=== PATIENT | male | born 1955 | race Caucasian/White ===

== ENCOUNTER 2022-02-16 21:41 | Emergency (ER) | payer OTHER, SELFPAY ==
[2022-02-16 21:45] VITALS: BP 134/84; PULSE 70; RESP 14; TEMP 36.2; O2SAT 97; BMI 24.3
--- NOTE | 2022-02-16 22:50 | EDS_ITS ---
HPI History of Present Illness Chief Complaint: Back Informant: patient Onset/Context/Timing Onset: Weeks (1-2) Narrative Narrative: Little over a week of gradual onset and gradually worsening pain in his right low back going down his right leg, the back of it to the ankle, wrapping around the anterior lateral lower leg. Starting to feel a little weak but he is able to walk. 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 He was seen at outside hospital for the same thing several days ago and started on cyclobenzaprine and prednisone. He states pain is persistent and not necessarily getting any better but he has no new symptoms. No bowel or bladder dysfunction. No injuries or heavy lifting associated with the onset of this. Never had this before. [facility] Medical History (Updated 02/17/22 @ 00:[address] Reji Salazar MD) History of left above knee amputation Medical History no medical history no medical history Home Medications acetaminophen-codeine [Tylenol-Codeine #4] 1 tab PO Q6H PRN 02/16/22 [History Last Taken Unknown] cyclobenzaprine [Flexeril] 10 mg PO TID PRN 02/16/22 [History Last Taken Unknown] prednisone 20 mg PO BID 02/16/22 [History Last Taken Unknown] gabapentin 300 mg PO TID #89 cap 02/17/22 [Rx Last Taken Unknown] hydrocodone-acetaminophen 1 tab PO Q4H PRN PRN 2 Days #10 tablet 02/17/22 [Rx Last Taken Unknown] Allergy/AdvReac Type Severity Reaction Status Date / Time oxycodone AdvReac Itching Verified 02/16/22 21:44 Social History Smoking Status: Current every day smoker tobacco type: pipe ROS ROS ED Constitutional Constitutional ED: Denies chills or fever(s) Gastrointestinal Gastrointestinal: Denies abdominal pain, constipation, fecal incontinence, nausea or vomiting Genitourinary Genitourinary ED: Reports other Details: no urinary retention ; Denies abdominal discomfort or urinary incontinence Musculoskeletal Musculoskeletal: Reports as per HPI and back pain; Denies neck pain Integumentary Denies rash or wounds Neurologic Neurologic: Reports paresthesias and weakness; Denies headache(s) EXAM Physical Exam Const Vital Signs: 02/16/22 21:45 Temperature 97.1 F L Temperature Source Temporal Pulse Rate 70 Respiratory Rate 14 Blood Pressure 134/84 H Blood Pressure Mean 100 Pulse Ox 97 Oxygen Delivery Method Room Air Positive well nourished and well developed General Appearance ED: well developed and NAD HEENT Negative for trauma or tenderness Eyes PERRL and EOMs intact bilaterally Neck full ROM and supple GI normal to inspection, nondistended, normoactive bowel sounds, soft to palpation and non-tender Back/Spine normal to inspection Lumbar Spine / Lower Back: ROM limited, paraspinal muscle tenderness right (Right sciatic notch and SI joint) and straight leg raise positive right at 30 degrees; Negative for lumbar spinal tenderness Extremity normal to inspection, full ROM and no pedal edema Neuro oriented x3 and no sensory deficits noted Sensorium / Orientation: alert Motor Exam: strength 5/5 throughout and clonus absent Deep Tendon Reflexes: Rt Patellar (L4): 2+ and Rt Ankle (S1): 2+ Deep Tendon Reflexes Back: Rt Patellar (L4): 2+ and Rt Ankle (S1): 2+ Plantar Reflex: Downgoing: right Psych mental status grossly normal and thought process normal Skin no rashes or lesions noted and no wounds MDM MDM MDM Narrative Medical decision making narrative: Three-view lumbar spine x-rays were obtained, on my interpretation they show degenerative changes but no acute abnormality in the bones. Patient was given gabapentin and morphine and he did feel better. I agree this is probably sciatica. He does not have anything emergently surgical here. I referred him to spine, gave him information for both of our production support specialist here in [place], and I think it is reasonable to continue the prednisone as prescribed as well as the Flexeril as needed, and I will prescribe him a short course of hydrocodone in addition to gabapentin. Radiography Diagnostic Testing: Clinical Impression(s) from Imaging Studies Lumbar Spine X-Ray 02/16/22 23:20 IMPRESSION: Moderate-marked multilevel degenerative spine changes. Additional imaging such as MRI or CT could be considered if it is thought to be indicated. Electronically Signed: Marcia Oliva MD at 0:01 EDT , Discharge Plan Triage Chief Complaint: Back ED Provider: Reji Salazar Dx/Rx/DC Orders Clinical Impression: Acute right-sided back pain with sciatica Instructions: ED Sciatica Prescriptions: New hydrocodone-acetaminophen [hydrocodone-acetaminophen] 1 TABLET tablet 1 tab PO Q4H PRN PRN (Reason: Pain) 2 Days Qty: 10 RF: 0 gabapentin 300 mg capsule 300 mg PO TID Qty: 89 RF: 0 No Action cyclobenzaprine [Flexeril] 10 mg Tablet 10 mg PO TID PRN (Reason: Pain) RF: 0 prednisone 20 mg Tablet 20 mg PO BID RF: 0 acetaminophen-codeine [Tylenol-Codeine #4] 300-60 mg Tablet 1 tab PO Q6H PRN (Reason: Pain) RF: 0 Primary Care Provider: Irasema Morrison Referrals: Sohail Colbert DO [STAFF PHYSICIAN] - As soon as possible Irasema Morrison DO [Primary Care Provider] - Andrade Baker DO [STAFF PHYSICIAN] - As soon as possible Activity Restrictions/Additional Instructions: Choose one of the spine specialists above for follow-up. Disposition Disposition: Home, Self Care
[2022-02-16] MEDS: Morphine 4 MG/ML Syringe IM (23:00)
[2022-02-16] MEDS: Gabapentin 300 MG Capsule PO (23:11)
--- NOTE | 2022-02-16 23:20 | RAD_ITS ---
EXAM: XR LUMBOSACRAL SPINE, 2 OR 3 VIEWS CLINICAL INDICATION: pain TECHNIQUE: Frontal and lateral views of the lumbar spine and sacrum. This report was created using [employer] report generation technology. COMPARISON: None. FINDINGS: VERTEBRAE: Mild straightening of the usual lordotic curvature. Facet joint hypertrophic changes of the midlower lumbar facet joints. Intact SI joints. Surgical clips projecting over the right iliac bone. DISC SPACES: Marked disc space narrowing at L4-5 with anterior spondylosis. Moderate disc space narrowing at other levels including moderate-marked narrowing at L5-S1 with predominantly anterior spondylosis at multiple levels. SOFT TISSUES: Cholecystectomy clips. VASCULATURE: Peripheral calcification of the aorta without terra aneurysm. GASTROINTESTINAL TRACT: Moderate stool in the right colon. Included bowel gas pattern is non-obstructive. OTHER FINDINGS: 2 views. RAD/Lumbar Spine 2 or 3 Views IMPRESSION: Moderate-marked multilevel degenerative spine changes. Additional imaging such as MRI or CT could be considered if it is thought to be indicated. Electronically Signed: Marica Oliva MD at 0:01 EDT ,
[2022-02-17 00:46] VITALS: PULSE 80; RESP 16; O2SAT 97
== END 2022-02-17 00:47 | disposition home or self-care (01) ==
PROVIDERS: Emergency Provider Emergency Medicine; PCP Family Medicine; Visit Provider Emergency Medicine
DX: M54.41 Lumbago with sciatica, right side (principal); F17.200 Nicotine dependence, unspecified, uncomplicated
CPT/HCPCS: 72100; 96372; 99283

== ENCOUNTER 2022-03-02 05:02 | Emergency (ER) | payer OTHER, SELFPAY ==
[2022-03-02 05:03] VITALS: BP 122/92; PULSE 90; RESP 15; TEMP 36.6; O2SAT 94; BMI 24.3
--- NOTE | 2022-03-02 05:35 | ED.VIS.BACK ---
HPI History of Present Illness Chief Complaint: Lower Extremity Injury Informant: patient and spouse/S.O. Onset/Context/Timing Onset: Weeks (several) Context: Gradual Onset Timing: Continuous Quality: Aching Location: Lumbar, Buttock and Right Leg Current Severity: Severe Maximum Severity: Severe Worsened by: improves with Nothing Relieved by: Nothing Associated Symptoms Associated Symptoms: Tingling and Radiation to Right Leg; Negative for Abdominal Pain, Urinary Retention, Urinary Incontinence, Constipation and Fecal Incontinence Narrative Narrative: Patient was seen here about a week ago for same symptoms, he did get some relief temporarily, but the symptoms have gradually worsened he took his last hydrocodone tonight, pain is still severe. Hydrocodone was working well before, at least to help ease the pain temporarily. I put him on gabapentin, he states it does not seem to be doing a lot, so he is only taking it at night because it makes him sleepy. He denies any new symptoms, just worsening of the ones that were there before. It is Friday morning he has an appointment Friday with spine. He denies any bowel or bladder dysfunction or saddle anesthesia but has developed some right groin pain. It does not hurt worse to bear weight on. [facility] Medical History History of left above knee amputation Home Medications gabapentin 300 mg PO TID #89 cap 02/17/22 [Rx Last Taken Unknown] hydrocodone-acetaminophen 1 tab PO Q4H PRN 4 Days #20 tab 03/02/22 [Rx Last Taken Unknown] Allergy/AdvReac Type Severity Reaction Status Date / Time oxycodone AdvReac Itching Verified 03/02/22 05:07 Social History Smoking Status: Current every day smoker tobacco type: pipe ROS ROS ED Constitutional Constitutional ED: Denies chills or fever(s) Gastrointestinal Gastrointestinal: Denies abdominal pain, constipation, fecal incontinence, nausea or vomiting Genitourinary Genitourinary ED: Reports other Details: no urinary retention ; Denies abdominal discomfort or urinary incontinence Musculoskeletal Musculoskeletal: Reports as per HPI and back pain; Denies neck pain Integumentary Denies rash or wounds Neurologic Neurologic: Reports paresthesias RLE (hernandez); Denies headache(s) or weakness EXAM Physical Exam Const Vital Signs: 03/02/22 05:03 Temperature 97.9 F Temperature Source Oral Pulse Rate 90 Respiratory Rate 15 Blood Pressure 122/92 H Blood Pressure Mean 102 Pulse Ox 94 Oxygen Delivery Method Room Air Positive well nourished and well developed General Appearance ED: well developed and NAD HEENT Negative for trauma or tenderness Eyes PERRL and EOMs intact bilaterally Neck full ROM and supple GI normal to inspection, nondistended, normoactive bowel sounds, soft to palpation and non-tender Back/Spine no CVA tenderness and normal to inspection Lumbar Spine / Lower Back: pain with ROM, paraspinal muscle tenderness right (at R SI joint) and straight leg raise positive right at 60 degrees; Negative for lumbar spinal tenderness Extremity normal to inspection, full ROM and no pedal edema Extremity Narrative: No groin/hip joint pain with passive internal/external rotation of the right hip Neuro oriented x3 and no sensory deficits noted Sensorium / Orientation: alert Motor Exam: strength 5/5 throughout and clonus absent Deep Tendon Reflexes: Rt Patellar (L4): 2+, Lt Patellar (L4): 2+, Rt Ankle (S1): 2+ and Lt Ankle (S1): 2+ Deep Tendon Reflexes Back: Rt Patellar (L4): 2+, Lt Patellar (L4): 2+, Rt Ankle (S1): 2+ and Lt Ankle (S1): 2+ Plantar Reflex: Downgoing: bilateral Psych mental status grossly normal and thought process normal Skin no rashes or lesions noted and no wounds MDM MDM MDM Narrative Medical decision making narrative: X-rays were obtained at his last visit which showed mild to marked degenerative changes in the spine. He is having symptoms of an L4 right radiculopathy. He is also having pain and tenderness of the SI joint. At this time I would continue the gabapentin until he sees spine and is told otherwise, he states he had a shot of Toradol which worked well so I am going to give him that and analgesics as well as another prescription for hydrocodone. He already had steroids and I do not think they really helped, so were not going to repeat that at this time. Discharge Plan Triage Chief Complaint: Lower Extremity Injury ED Provider: Reji Salazar Dx/Rx/DC Orders Clinical Impression: Acute right-sided low back pain with sciatica Instructions: ED Sciatica Prescriptions: Continued gabapentin 300 mg capsule 300 mg PO TID Qty: 89 RF: 0 Changed hydrocodone-acetaminophen 1 TABLET tablet 1 tab PO Q4H PRN (Reason: Pain) 4 Days Qty: 20 RF: 0 Primary Care Provider: Irasema Morrison Referrals: Surgeon, Spine [Other] - Keep Sam appointment Irasema Morrison DO [Primary Care Provider] - Disposition Disposition: Home, Self Care
[2022-03-02] MEDS: Ketorolac 30 MG/ML Syringe IV (05:42)
[2022-03-02] MEDS: Morphine 4 MG/ML Syringe IV (05:45)
[2022-03-02 06:09] VITALS: BP 122/90; PULSE 90; RESP 15; O2SAT 94
== END 2022-03-02 06:10 | disposition home or self-care (01) ==
PROVIDERS: Emergency Provider Emergency Medicine; PCP Family Medicine; Visit Provider Emergency Medicine
DX: M54.40 Lumbago with sciatica, unspecified side (principal); F17.290 Nicotine dependence, other tobacco product, uncomplicated
CPT/HCPCS: 96374; 96375; 99283; A4216

== ENCOUNTER → 2022-03-06 | Outpatient (CLI) | payer MEDICARE, OTHER, SELFPAY ==
--- NOTE | 2022-03-06 16:41 | MRI_ITS ---
STUDY: MRI LUMBAR SPINE WITHOUT CONTRAST REASON FOR EXAM: Male, 66 years old. Pain, radiculopathy right leg TECHNIQUE: Standardized fat and water weighted pulse sequences were obtained in the sagittal and axial planes. COMPARISON: None FINDINGS: T12-L1: Normal endplates. Normal disc height, hydration and morphology. Normal bilateral facet joints. Normal central canal and bilateral lateral recesses. Normal bilateral intervertebral neural foramina. Normal lumbar lordosis. There is severe levo scoliosis. Normal conus medullaris that terminates at T12-L1 L1-2: Normal endplates. Normal disc height, desiccation and minimal annular bulge.. Normal bilateral facet joints. Normal central canal and bilateral lateral recesses. Normal bilateral intervertebral neural foramina. L2-3: Schmorl''s node deformity of the superior endplate of L3. Normal disc height, desiccation and minor annular bulge.. Bilateral facet arthropathy.. Normal central canal and bilateral lateral recesses. Moderate bilateral neuroforaminal encroachment L3-4: Normal endplates. Normal disc height, desiccation and minor annular bulge with small right foraminal disc protrusion... Facet arthropathy and thickening of ligamenta flava more severe on the right.. Normal central canal. Moderate right lateral recess stenosis and more severe narrowing of the right nerve root foramen L4-5: Narrowed disc space with degenerative endplate changes. Desiccation of disc and minimal annular bulge with large right posterolateral/foraminal disc extrusion with superior migration of disc fragment. Mild facet arthropathy. Normal central canal. Moderate to severe right lateral recess and supra articular stenosis. Moderate left neuroforaminal stenosis and moderate to severe narrowing on the right L5-S1: Normal endplates. Normal disc height, desiccation and minimal annular bulge.. Bilateral facet arthropathy more pronounced on the left.. Normal central canal and bilateral lateral recesses. Mild right neuroforaminal stenosis and moderate narrowing on the left.. Normal visualized sacral ala. Normal visualized paraspinous soft tissue structures. MRI/Spine Lumbar (Routine) IMPRESSION: Severe levoscoliosis and degenerative changes. Multilevel small stenosis secondary to disc disease and bony hypertrophy most severe on the right at L3-4 and L4-5. Findings as above Electronically Signed: Sohail Arambula MD at 19:50 EDT Reading Location ID and State: [facility] / [place] , Service support ,
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
== END | disposition home or self-care (01) ==
LOC: MRI 16:41
PROVIDERS: PCP Family Medicine
DX: M54.16 Radiculopathy, lumbar region (principal)
CPT/HCPCS: 70030; 72148

== ENCOUNTER 2022-03-27 10:19 | Observation (INO) | payer OTHER, SELFPAY ==
--- NOTE | 2022-03-22 08:54 | EKG12_ITS ---
Test Reason : PRE-OP Blood Pressure : / mmHG Vent. Rate : 090 BPM Atrial Rate : 090 BPM P-R Int : 160 ms QRS Dur : 086 ms QT Int : 368 ms P-R-T Axes : 076 027 048 degrees QTc Int : 450 ms Normal sinus rhythm Nonspecific ST abnormality Abnormal ECG Confirmed by MEAGAN MOULTON, KANDIS ([id number]), scientific editor DOMENICA MCGEE ([id number]) on 03/22/2022 11:25:05 AM Referred By: Andrade Baker Confirmed By:KANDIS RHODES MD
[2022-03-22 09:58] LABS: Absolute Lymphocyte Count 1.18 X10^3/uL (0.83-4.51); Absolute Neutrophil Count 3.7 X10^3/uL (2.0-7.7); Basophil# 0.08 X10^3/uL; Basophil% 1.4 % (0-1); Eosinophil# 0.15 X10^3/uL; Eosinophils% 2.7 % (0-5); Hematocrit 45.3 % (40-54); Hemoglobin 15.6 g/dL (13.0-16.5); Lymphocyte # 1.18 X10^3/ul (0.83-4.51); Mean Corp Hgb Conc 34.4 g/dL (32-36); Mean Corpuscular Hgb 31.8 pg (27.0-32.0); Mean Corpuscular Volume 92.4 fL (80-94); Mean Platelet Vol. 10.6 fl (6.2-12.0); Monocyte# 0.47 X10^3/uL; Monocyte% 8.3 % (0-10); NRBC Flagged by Analyzer 0 % (0-5); Neutrophil # 3.73 X10^3/uL (2.7-7.7); Neutrophil % 66.2 % (47-70); Platelet Count 313 K/mm3 (150-450); RBC Distribution Width SD 41.5 fl (35.1-43.9); White Blood Count 5.6 K/mm3 (4.4-11.0)
[2022-03-22 10:11] LABS: Prothrombin Time (Protime)PT. 12.4 SECONDS (11.7-14.9)
[2022-03-22 10:12] LABS: Partial Thromboplast Time 28.7 Seconds (24.1-36.2)
[2022-03-22 10:17] LABS: Anion Gap 6 (5-15); BUN 8 mg/dL (7-18); BUN/Creat Ratio 9.1 RATIO (10-20); Calcium,Total 9.1 mg/dL (8.5-10.1); Chloride 108 mmol/L (98-107); Creatinine, Serum 0.88 mg/dL (0.70-1.30); EST Glomerular Filtration Rate 93 mL/min (>60); Est Glom Filt Rate - Afr Amer 112 mL/min (>60); Glucose 87 mg/dL (74-106); Potassium 4.2 mmol/L (3.5-5.1); Sodium Level 139 mmol/L (136-145)
[2022-03-22 10:25] LABS: AST(SGOT) 23 U/L (15-37); Alanine Aminotransfer ALT/SGPT 74 U/L (16-61); Albumin, Serum 3.9 g/dL (3.2-5.0); Alkaline Phosphatase 81 U/L (45-117); Bilirubin, Direct 0.16 mg/dL (0.00-0.30); Globulin 3.4 g/dL (2.2-4.2); Magnesium 2.4 mg/dL (1.6-2.6); Protein, Total 7.3 g/dL (6.4-8.2)
[2022-03-22 10:55] LABS: HIV - WCH Non-Reactive (Nonreactive); Hepatitis B Surface Antibody Non-Reactive; Hepatitis C Antibody Non-Reactive (Nonreactive)
[2022-03-23 08:42] LABS: Hepatitis A AB, Total Positive (Negative)
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
[2022-03-27] VITALS (12 sets, daily range): BP systolic 95–145; BP diastolic 57–83; PULSE 74–87; RESP 14–24; TEMP 36.5–37; O2SAT 92–100; BMI 23.6
[2022-03-27 06:10] LABS: Bedside Glucose 82 mg/dL (74-106)
[2022-03-27] MEDS: Lactated Ringers 1,000 ML 15 ML IV (06:15)
[2022-03-27] MEDS: Acetaminophen 500 MG Tablet 1000 MG PO (06:15)
--- NOTE | 2022-03-27 07:00 | RAD_ITS ---
STUDY: X-RAY - LUMBAR SPINE REASON FOR EXAM: Male, 66 years old. LAMINECTOMY L4-5, RIGHT TECHNIQUE: 1 lateral view(s) of the lumbar spine were obtained. COMPARISON: None FINDINGS: The localization instrument is seen posterior to the L4-L5 level. RAD/Spine 1 View Any Level IMPRESSION: The localization instrument is seen posterior to the L4-L5 level. Electronically Signed: Balta Sanchez MD at 14:06 EDT ,
--- NOTE | 2022-03-27 07:30 | DISC_PTH ---
PATIENT: QUINTIN BAEZ LOC: [facility] U#:[id number] AGE/SX: 66/M ROOM: UT319 RE03/27/[address]: Dr. Andrade Baker DO : 1955 BED: 1 DIS: 03/28/2022 SPEC #: [id number] RECD: 03/27/22 12:22 STATUS: LESA REBijal #: [id number] CHACHO: 03/27/22 07:[address]: Andrade Baker DEPT: SURGICAL PATHOLOGY RECD BY: Trever Tavares ENTERED: 03/27/22 12:44 SP TYPE: DISC OTHR DR: Dr. Irasema Morrison DO Tissues: Intervertebral disc, NOS Procedures: Surgery Specimen Level III HEADER OPERATION: ERAS, lumbar laminectomy L4-L5 right PRE-OP DIAGNOSIS: Lumbar back pain with radiculopathy affecting right lower extremity TISSUE SUBMITTED: L4-L5 disc MICROSCOPIC DIAGNOSIS L4-L5 disc: Fragments of fibrocartilaginous tissue with reactive and degenerative changes and fragments of fibroadipose tissue. RHONDA:ruy 03/28/2022 MICROSCOPIC DESCRIPTION Slides are reviewed. GROSS DESCRIPTION Received in fixative is one container labeled with the patient's name and designated L4-L5 disc. The specimen consists of multiple irregular fragments of solano-pink, indurated tissue that in aggregate measure 3 x 2.5 x 0.3 cm. The specimen is totally submitted in one cassette. / RHONDA:ruy 03/27/2022 TC:5 CPT: 10273
[2022-03-27] MEDS: Cefazolin 2 GM in 0.9% Normal Saline 100 ML IV (08:04)
[2022-03-27] MEDS: THROMBIN (RECOMBINANT) 20,000 UNIT VIAL 20000 UNIT TOPICAL (08:29)
--- NOTE | 2022-03-27 10:27 | PCM.OPRPT ---
Report of Operation Description of Surgical Findings:: Preoperative diagnosis: Herniated disc L4-5 with severe right L5 radiculopathy Postoperative diagnosis: The same Procedures: Lumbar hemilaminectomy L4-5 on the right with discectomy CPT code 41822 Surgeon: Dr. Baker registered sales assistant: Larisa MACEDO Anesthesia: General endotracheal administered by [facility] EBL: 30 cc Drains: Medium Hemovac Complications: None Procedure: Patient was taken to the OR where he was placed under general endotracheal anesthesia. Note that the patient is an above left knee amputee. Neuro monitoring placed their leads on the patient. He was then placed in the prone position on the Tomasz frame. After appropriate positioning with care to protect his bony prominences his genitalia the ulnar nerves of both elbows the brachial plexus and cervical spine the back was prepped and draped in standard fashion. I then made a longitudinal incision centered over L4-5. Subcutaneous tissues were incised the length of the skin incision. I then opened the lumbar fascia to the right of the spinous processes and elevated the paravertebral muscles off the lamina for and the top of the lamina of 5. An intraoperative x-ray was taken with a marker in place to confirm that we were indeed at L4-5. Then put a Kathy retractor in place and used cautery to remove all remaining areolar tissue and fatty tissue from of the lamina. Note that we knew that we would have to go up quite high basically all the way up to the next nerve root almost to the L3-4 space. Because the herniation left L4-5 and went northward that is cephalad near the disc above. This of course was seen on the MRI scan. I then elevated the ligamentum flavum off the underside of the lamina of L4 and began the releasing the ligamentum flavum underneath. Note that I also released it off the top of the L5 lamina. This was done again with curettes. I then continued the hemilaminectomy cephalad till nearly the end of the lamina. I then remove the ligamentum flavum in retrograde fashion with a 45 degree Kerrison rongeurs. I removed all the ligamentum flavum lateralward in the lateral recess. At times I used cottonoids to protect the dura. Then retracted the dura medialward. Identified many pieces of herniated disc it was not just in 1 piece. So using pituitary rongeurs I picked them out 1 at a time. Note that I had a piece as far as the introitus to the foramen where the L4 nerve above exited we could visualize it and remove that piece also at the very base of the axilla of the L4 nerve. He actually did not have any L4 symptoms it was all L5. Bleeders were controlled with bipolar cautery and thrombin-soaked Gelfoam repeatedly until we had excellent hemostasis. Noted in the course of the case we thoroughly irrigated with copious amounts of sterile saline repeatedly to prevent infection. After the last wash we placed amnionic membrane directly over all the open dura to prevent adhesions in the future. Gelfoam was placed over the top of that. A medium Hemovac drain was inserted. We then closed the lumbar fascia using [id number]-[id number]-tzwgs suture with #1 Vicryl followed by closure of subcutaneous tissues with 0 Vicryl and 2-0 Vicryl in interrupted fashion. The skin was approximated using skin clips. Sterile dressings were then applied. The patient was then recovered in the OR moved to his hospital bed and taken to recovery in satisfactory condition. This is the end of operative summary on Jose A Drake. This is Dr. Baker dictating.
[2022-03-27] MEDS: Lactated Ringers 1,000 ML 100 ML IV (12:31)
[2022-03-27] MEDS: Ensure Surgery 237 ML LIQUID PO (12:31)
[2022-03-27] MEDS: traMADol 50 MG Tablet PO (12:39)
--- NOTE | 2022-03-27 15:28 | CON.PCM.HO_ITS ---
Assessment & Plan Assessment/Plan (1) Herniated nucleus pulposus, L4-5 right: PLAN: This is 66-year-old gentleman admitted electively after right L4-L5 laminectomy. 1. Herniated disc L4-L5 with severe right L5 radiculopathy: Patient had right L4-L5 laminectomy on 03/27/2022. Pain control. PT OT ordered. Patient has Caba catheter inserted in OR. Clear urine. Patient has mild constipation because of hydrocodone at home. On laxatives. Heart rate and blood pressure usually normal but slightly lower side after surgery. Probably postanesthesia effect 2. Chronic migraine headache: At home patient is not on migraine prophylaxis medication. Did not had recent acute migraine headache episode. 3. History of degenerative arthritis, fracture of left humerus and femur, s/p L knee amputation: Patient uses prosthesis. 4. Chronic smoker pipe smoker: Patient advised to quit smoking and drinking VTE prophylaxis: Right SCD. Pulmonary prophylaxis as per Dr. Baker. HPI Consult Data Date of Consult: 03/27/22 HPI Narrative Reason for Consultation: Medical management of medical comorbidities, arthritis, left above-knee amp HPI Narrative: QUINTIN BAEZ, is a 66 M who is admitted electively by Dr. Baker after right- sided L4-L5 laminectomy. Patient has history of herniated disc L4-L5 with severe right L5 radiculopathy. Patient has history of chronic back pain with radiation to right leg pain, sciatic in nature. Preop twelve-lead EKG shows normal sinus rhythm at [address]-T abnormality. Caba catheter was inserted in preop in OR Patient has left above-knee amputation because of accident in the past. Denies history of peripheral arterial disease. History of chronic migraine headache, controlled. Patient has multiple comorbidities Patient has multiple comorbidities including fracture of left humerus and femur. Patient is a current pipe smoker. Also drinks alcohol, 4 beers daily with no drinks in the last 2 weeks. History taken from the patient and his near the bedside. [facility] Medical History Alcohol use Arthritis Back pain History of edema History of left above knee amputation History of nerve impingement History of pain when walking History of stress test History of trigger finger Hx of fracture of arm Hx of fracture of femur Migraine headache Phantom limb pain Smoker Uses crutches Home Medications acetaminophen 300 mg-codeine 60 mg tablet 1 tab PO Q6H PRN pain 15 days #60 tabs 03/18/22 [Rx Last Taken Unknown] Allergy/AdvReac Type Severity Reaction Status Date / Time oxycodone AdvReac Itching Verified 03/27/22 06:09 Surgical History History of carpal tunnel surgery of right wrist Hx laparoscopic cholecystectomy Hx of total knee arthroplasty Hx of umbilical hernia repair Social History Smoking Status: Current every day smoker tobacco type: pipe ROS ROS Narrative Constitutional: Chronic back pain, right-sided sciatica pain, HEENT: Reports systems reviewed and no addt'l complaints, except as documented Respiratory/Chest: Denies chest pain, shortness of breath at rest or with exertion Gastrointestinal: Denies coffee ground emesis, hematemesis or vomiting Genitourinary: Denies burning urination or new urinary tract symptoms. Caba catheter Musculoskeletal: Left above-knee amputation Neurologic: Denies seizure-like activity skin: No ulcer. No rash Endocrinology: Reports systems reviewed and no addt'l complaints, except as documented Hematologic/Lymphatic: Reports systems reviewed and no addt'l complaints, except as documented Rest 14 ROS are negative except as mentioned in HPI Physical Exam Narrative Physical exam General: Alert, Oriented x3, Cooperative HEENT: Atraumatic, PERRLA, EOMI, Normocephalic Oral: No Gingival or Mucosal Lesions/ Ulcerations Neck: Supple, No JVD, Negative Carotid Bruits Lungs: Air entry diminished in bilateral lung bases. No crepitation/rhonchi Cardiovascular: Regular rate, Regular Rhythm, Normal S1, Normal S2, No murmurs Abdomen: Bowel Sounds Present, Soft, Non Tender, Non-Distended : No renal angle tenderness. No suprapubic tenderness. Extremities: Left above-knee amputation. Patient uses prosthesis. No edema, Capillary Refill Less than 3 Seconds Skin: No rashes, No breakdown Musculoskeletal/spine: Surgical dressing over lumbar spine is dry. Drain present, serosanguineous fluid. Mild tenderness over perioperative region. Neurological: Cranial nerves II-XII grossly intact, DTR 2+/4 and Symmetrical, Neuro grossly intact Psych/Mental Status: Normal Affect, Appropriate. Lab / Micro Data Result Diagrams: 03/22/22 09:12 03/22/22 09:12 Labs: Laboratory Results - last 24 hr 03/27/22 06:02: POC Glucose 82 Charges/Coding Visit Charges Office Visits / Consults: 09268 OP Consult L4
[2022-03-27] MEDS: 0.9% Saline Lock 10 ML Syringe IV (16:10)
[2022-03-27] MEDS: Cefazolin 1 GM/50 ML BAG IV ×2 (16:48→23:09)
[2022-03-28 02:29] VITALS: BP 110/50; PULSE 66; RESP 16; TEMP 36.7; O2SAT 96
[2022-03-28] MEDS: traMADol 50 MG Tablet PO ×2 (06:19→13:41)
--- NOTE | 2022-03-28 06:31 | NURSING ---
Rosales freire/adama @ [id number]
[2022-03-28 07:15] VITALS: O2SAT 94
[2022-03-28] MEDS: Ensure Surgery 237 ML LIQUID PO (08:06)
[2022-03-28 08:11] VITALS: BP 110/73; PULSE 69; RESP 16; TEMP 36.6; O2SAT 99
--- NOTE | 2022-03-28 11:48 | CASEMGMT ---
DEDE ROSA Assessment: Face to Face with pt for initial transition planning/care coordination assessment. DEDE ROSA introduced self and role at [facility], pt voices understanding and consents to assessment. Pt is A/O x4 and answers all questions appropriately at this time. Pt sitting up in chair with at bedside. Care providers, pharmacy, and demographics verified/updated. Admitting Dx: lumbar laminectomy L4-5, right PCP:Prince Specialists:Samuel, spine OR Preferred Pharmacy: [facility] Insurance: [employer] Prescription Benefit: yes LW/HPOA: Pt denies having a LW/DPOA and denies need for info regarding AD. LNOK: Supriya Adame, Living Arrangements: Pt lives with in a split level house with 2 steps to enter without a rail/grab bar. Once inside, pt has 6 steps to go up or 7 to go down. Pt reports he is I in ADL's and denies concerns at home. Transportation: Pt drives self and denies concerns with transportation. Pt is able to transport him until he can drive again. DME/HHC/SNF: Pt has crutches at home, does not typically use DME. Pt would like pt to get a FWW for home use. Pt is reluctant but agreeable. Provided pt with a local in network list of DME companies, pt chose [employer]. Pt denies hx of HHC or SNF stays. Pt states no concerns with going home at time of dc. Pt states no further concerns/needs. CM to follow. Advised pt to ask CM if any further question/concerns/needs arise, voices understanding. Pt Goal: Home Plan: Home
[2022-03-28 14:17] VITALS: BP 110/67; PULSE 71; RESP 16; TEMP 36.6; O2SAT 99
--- NOTE | 2022-03-28 14:39 | PCM.DC ---
Discharge Instructions Follow Up Care Test Results: Test results from this visit will be discussed in further detail at your follow-up appointment, if applicable. Discharge Plan Admission Admit Date/Time: 03/27/22 10:19 Primary Reason for Your Visit: back surgery Attending Provider: Andrade Baker Primary Care Provider: Irasema Morrison Consulting Providers: Wendy Melo ; Elza Lemus ; Javan Garrison ; Ramiro Pisano ; Blaise Markham ; Moncho Churchill ; Jack Chavez ; Chet Rodriguez ; Garcia Zaldivar ; Della Loo ; Mark Washburn ; Rebecca Cochran ; Dre Duckworth ; Franck Louise ; Dav Lyn ; Sixto Grady ; Kayley Gage ; Sosa Obrien DIRECTOR OF EVENT SALES Discharge Orders/Prescriptions Prescriptions: No Action acetaminophen-codeine 300-60 mg tablet 1 tab PO Q6H PRN (Reason: pain) 15 Days Qty: 60 0RF Referrals / Follow Up: Irasema Morrison, [Primary Care Provider] - Disposition Disposition (needs filled in before D/C Order can be placed): Home, Self Care
--- NOTE | 2022-03-28 14:40 | CASEMGMT ---
Addendum entered by Lianna Moyer 03/28/22 15:07: TC to [facility], spoke with Jed who states they will deliver shortly. Original Note: Faxed rx for FWW to [facility] at this time with request to be delivered to room.
--- NOTE | 2022-03-28 14:41 | DS.PCM_ITS ---
Providers Date of Admission: 03/27/22 Primary Care Physician: Dr. Irasema Morrison, DO Consultations 03/27/22 11:53 Consult: Hospitalist Routine Consulting Provider: Vance Kelly Reason for Consult: Medical Management EMERGENT Consult: No MD Notified: Yes Date Notified: 03/27/22 Time Notified: 13:04 Method of Notification: text via spok Reason For Visit: LUMBAR LAMINECTOMY L4-5 RIGHT Diagnosis Discharge Diagnosis (1) Herniated nucleus pulposus, L4-5 right: Status: Acute Code(s): M51.26 - Other intervertebral disc displacement, lumbar region Medications at Discharge Home Medications acetaminophen 300 mg-codeine 60 mg tablet 1 tab PO Q6H PRN pain 15 days #60 tabs 03/18/22 Hospital Course Summary of Care Provided Hospital Course: Mr. Drake was admitted yesterday 27 March. He underwent lumbar laminectomy at L4-5 on the right side. He tolerated the procedure well. Rounds today the dressing was removed the drain was also removed. He reports that his leg pain is virtually all gone. His back pain is quite tolerable. He is very pleased with how he is feeling now compared to how he did when he came in. His incision was healing well. Neurologically his right leg is intact. I gave him and his directions regarding his going home. He is to remove the dressing on Friday and on Friday he can start showering. He can drive a car in 2 weeks. He already has an appointment to see me in the office. He will also do some walking for us but that will be his recovery he will not need any formal therapy. He may be ready to return to work light duty only and as little as 1 month. He knows how to get ahold of me in the event that he should need me after his return home. This is the end of discharge summary on Jose A Drake. This is Dr. Baker dictating. Weight / BMI Weight Weight: 184 lb Body Mass Index (BMI) 23.6 ABG / Lab / Microbiology Data Result Diagrams: 03/22/22 09:12 03/22/22 09:12 Microbiology: Microbiology 03/22/22 09:12 Swab (Method) Nasal Screen MRSA/MSSA - Final Radiography Diagnostic Testing: Radiology Impression Spine X-Ray 03/27/22 07:00 IMPRESSION: The localization instrument is seen posterior to the L4-L5 level. Electronically Signed: Balta Sanchez MD at 14:06 EDT , Meaningful Use Info Meaningful Use Diagnoses (Choose all that apply): None applicable Discharge Plan Admission Admit Date/Time: 03/27/22 10:19 Primary Reason for Your Visit: back surgery Attending Provider: Andrade Baker Primary Care Provider: Irasema Morrison Consulting Providers: Wendy Melo ; Elza Lemus ; Javan Garrison ; Ramiro Pisano ; Blaise Markham ; Moncho Churchill ; Jack Chavez ; Chet Rodriguez ; Garcia Zaldivar ; Della Loo ; Mark Washburn ; Rebecca Cochran ; Dre Duckworth ; Franck Louise ; Dav Lyn ; Sixto Grady ; Kayley Gage ; Sosa Fisher PRODUCTION ESTIMATOR Discharge Orders/Prescriptions Prescriptions: No Action acetaminophen-codeine 300-60 mg tablet 1 tab PO Q6H PRN (Reason: pain) 15 Days Qty: 60 0RF Referrals / Follow Up: Irasema Morrison DO [Primary Care Provider] - Disposition Disposition (needs filled in before D/C Order can be placed): Home, Self Care
--- NOTE | 2022-03-28 18:13 | PCM.PN.HOSP ---
Subjective Subjective Follow-up after spine surgery. Patient has mild pain/50%. Sitting on the chair. Wants to go home. Patient has left above-knee amputation and is on prosthesis. Objective Data Objective Data Vital Signs: Vital Signs Temp Pulse Resp BP Pulse Ox O2 Del Method O2 Flow Rate 98 F 71 16 110/67 99 Room Air 4 03/28/22 14:17 03/28/22 14:17 03/28/22 14:17 03/28/22 14:17 03/28/22 14:17 03/28/22 14:17 03/27/22 11:54 Oxygen Flow Rate (L/min) 4 Oxygen Delivery Method Room Air Weight: 184 lb Body Mass Index (BMI) 23.6 Intake & Output: Intake and Output for Last 24 Hours 03/26/22 03/27/22 03/28/22 23:59 23:59 23:59 Intake Total 2043.75 / 2443.75 2350 / 2350 Output Total 1130 / 1800 1130 / 1130 Balance 913.75 / 643.75 1220 / 1220 Lab / Micro Data Result Diagrams: 03/22/22 09:12 03/22/22 09:12 Micro: Microbiology 03/22/22 09:12 Swab (Method) Nasal Screen MRSA/MSSA - Final Radiography Diagnostic Testing: Radiology Impression Spine X-Ray 03/27/22 07:00 IMPRESSION: The localization instrument is seen posterior to the L4-L5 level. Electronically Signed: Balta Sanchez MD at 14:06 EDT , Physical Exam Narrative Physical exam General: Alert, Oriented x3, Cooperative HEENT: Atraumatic, PERRLA, EOMI, Normocephalic Oral: No Gingival or Mucosal Lesions/ Ulcerations Neck: Supple, No JVD, Negative Carotid Bruits Lungs: Air entry diminished in bilateral lung bases. No crepitation/rhonchi Cardiovascular: Regular rate, Regular Rhythm, Normal S1, Normal S2, No murmurs Abdomen: Bowel Sounds Present, Soft, Non Tender, Non-Distended : No renal angle tenderness. No suprapubic tenderness. Extremities: Left above-knee amputation. Patient uses prosthesis. No edema, Capillary Refill Less than 3 Seconds Skin: No rashes, No breakdown Musculoskeletal/spine: Surgical dressing over lumbar spine is dry. Drain present small, serosanguineous fluid. Mild tenderness over perioperative region. Neurological: Cranial nerves II-XII grossly intact, DTR 2+/4 and Symmetrical, Neuro grossly intact Psych/Mental Status: Normal Affect, Appropriate. Assessment & Plan Assessment/Plan (1) Herniated nucleus pulposus, L4-5 right: PLAN: This is 66-year-old gentleman admitted electively after right L4-L5 laminectomy. 1. Herniated disc L4-L5 with severe right L5 radiculopathy: Patient had right L4-L5 laminectomy on 03/27/2022. Pain control. PT OT ordered. Patient has Caba catheter inserted in OR. Clear urine. Patient has mild constipation because of hydrocodone at home. On laxatives. Heart rate and blood pressure usually normal but slightly lower side after surgery. Probably postanesthesia effect 03/28: Mild tenderness over perioperative region. Small amount of drain collection. Patient had urine output. Patient is medically stable for discharge. 2. Chronic migraine headache: At home patient is not on migraine prophylaxis medication. Did not had recent acute migraine headache episode. 03/28: No acute issues of headache 3. History of degenerative arthritis, fracture of left humerus and femur, s/p L knee amputation: Patient uses prosthesis. 4. Chronic smoker pipe smoker: Patient advised to quit smoking and drinking VTE prophylaxis: Right SCD. Pulmonary prophylaxis as per Dr. Baker. Charges/Coding Visit Charges Inpatient E&M: 92428 Subs Hosp L2 OBSV E&M: 21521 Subsequent observation care L2
== END 2022-03-28 15:33 | disposition home or self-care (01) ==
LOC: SDC 10:29 → MS3 10:29
PROVIDERS: Anesthesiology; Admitting Provider Orthopaedic Surgery; PCP Family Medicine; Referring Provider Orthopaedic Surgery; Visit Provider Orthopaedic Surgery
PROC: (CPT 63030; principal; 2022-03-27 07:00)
DX: M51.16 Intervertebral disc disorders with radiculopathy, lumbar region (principal); Z89.612 Acquired absence of left leg above knee; G54.6 Phantom limb syndrome with pain; F17.220 Nicotine dependence, chewing tobacco, uncomplicated; Z79.899 Other long term (current) drug therapy; G43.909 Migraine, unspecified, not intractable, without status migrainosus; M19.90 Unspecified osteoarthritis, unspecified site; R94.31 Abnormal electrocardiogram [ECG] [EKG]; R10.31 Right lower quadrant pain; Z87.898 Personal history of other specified conditions; Z86.69 Personal history of other diseases of the nervous system and sense organs
CPT/HCPCS: 63030; 00630; 36415; 72020; 80048; 80076; 82962; 83735; 85025; 85610; 85730; 86703; 86706; 86708; 86803; 87081; 88304; 93005; 96361; 96365; 96366; 97162; 97530; 99218; 99251; 99406; J7120; A4216; G0378; G0463; J2405; J3475

== ENCOUNTER 2024-06-18 16:29 | Inpatient (IN) | payer MEDICARE, OTHER, SELFPAY ==
[2024-06-18] VITALS (9 sets, daily range): BP systolic 111–148; BP diastolic 67–74; PULSE 102–112; RESP 14–24; TEMP 36.6–37.1; O2SAT 88–97; BMI 24.2; BMI 22.6
--- NOTE | 2024-06-18 17:12 | EDS_ITS ---
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 Patient presents to the [facility] with cough, congestion, fever and chills this been ongoing for the last 11 days. Patient thought he was feeling better, however then he became worse. Patient states he has a harsh cough, cannot catch his breath. Patient is here for evaluation. [facility] <RAYNA Peterson - Last Filed: 06/18/24 19:57> [facility] Medical History (Updated 06/23/24 @ 08:[address] Halle Macias, DO) ETOH abuse Uses crutches Arthritis Back pain Migraine headache Smoker Phantom limb pain Hx of fracture of femur Home Medications ?Medication ?Instructions ?Recorded ?Last Taken ?Type albuterol sulfate 90 mcg/actuation 1 inh inhalation Q6H PRN shortness 06/19/24 Unknown Rx aerosol inhaler of breath or wheezing #8.5 grams amoxicillin 875 mg-potassium 1 tab PO BID 4 days #8 tabs 06/19/24 Unknown Rx clavulanate 125 mg tablet prednisone 20 mg tablet 40 mg (2 x 20 mg) PO DAILY 4 days 06/19/24 Unknown Rx #8 tabs Allergy/AdvReac Type Severity Reaction Status Date / Time oxycodone AdvReac Itching Verified 06/18/24 16:29 Family History (Updated 06/18/24 @ 19:[address] Elza Lemus MD) Mother Colon cancer Father Heart disease Surgical History (Updated 06/18/24 @ 20:41 by Jaimie Brunson) History of cholecystectomy History of appendectomy History of surgery on arm History of surgery on lower extremity History of carpal tunnel surgery of right wrist Hx of total knee arthroplasty Hx of umbilical hernia repair Hx laparoscopic cholecystectomy History of left above knee amputation Social History (Updated 06/18/24 @ 19:[address] Elza Lemus MD) household members: spouse Smoking Status: Current every day smoker tobacco type: pipe other: Packs his pipe usually at least 5x/day. alcohol intake: current alcohol intake frequency: 3 or more drinks per day Alcohol type: beer details: Usually 4-6 beers daily. substance use type: does not use ROS <EVENS PetersonC - Last Filed: 06/18/24 19:57> ROS ED ROS Narrative Constitutional: Negative for weight loss. Positive fever, chills, weakness Eyes: Negative for vision loss, vision change, double vision ENT: Negative for any sore throat, ear pain, congestion Cardiovascular: Negative for any chest pain, tightness, palpitations Respiratory: Positive for any cough, sputum production, hemoptysis, dyspnea, dyspnea on exertion, orthopnea Gastrointestinal: Negative for any abdominal pain, nausea, vomiting, diarrhea, constipation, blood in stool, blood in vomit : Negative for any urinary frequency, dysuria, retention, blood in urine Muscle skeletal: Negative for any neck pain, back pain Neurological: Negative for any syncope, dizziness. Positive for headache Skin: Negative for any rashes, itching, abrasions, lacerations Psychiatric: Negative for any depression, anxiety, stress, suicidal ideation, homicidal ideation Hematologic: Negative for any excessive bruising, easy bleeding EXAM <EVENS PetersonC - Last Filed: 06/18/24 19:57> Physical Exam Narrative Exam Narrative: Vital signs reviewed. HEET: Head normocephalic atraumatic, TMs clear bilaterally. Posterior pharynx is clear, dry mucous membranes. Nares clear bilaterally. Neck: Supple with no lymphadenopathy or tenderness. No signs of meningismus. Cardiac: Regular rate and rhythm no murmurs gallops or rubs, equal peripheral pulses bilaterally. Respiratory: Rales to the left lower lobe. No chest tenderness. Abdomen: Soft, nontender, nondistended. No abdominal bruit or pulsatile masses. No hepatosplenomegaly Extremities: No peripheral edema, no signs of gross trauma or deformity. Active full range of motion of all extremities. Neuro: Cranial nerves II through XII intact, no focal neurological deficits. Skin: Clean dry and intact with no rash, purpura, petechiae, vesicles or pustules. Backs/flank: No CVA tenderness, no midline spinal tenderness, no deformity. Psych: Normal mood and affect. No SI, HI or acute psychosis. Const Vital Signs: 06/18/24 16:29 06/18/24 16:40 06/18/24 17:09 Temperature 98.8 F Temperature Source Oral Pulse Rate 102 H Respiratory Rate 22 H Respiratory Effort Normal Respiratory Depth Shallow Blood Pressure 111/72 Blood Pressure Mean 85 Pulse Ox 93 95 Oxygen Delivery Method Room Air Room Air Room Air Oxygen Flow Rate (L/min) 06/18/24 18:25 06/18/24 18:54 06/18/24 19:00 Temperature 98 F 98.2 F Temperature Source Oral Pulse Rate 112 H 109 H 104 H Respiratory Rate 24 H 24 H 14 Respiratory Effort Respiratory Depth Blood Pressure 129/67 H 130/74 H 120/70 Blood Pressure Mean 87 92 86 Pulse Ox 95 95 94 Oxygen Delivery Method Room Air Nasal Cannula Oxygen Flow Rate (L/min) 2 06/18/24 19:13 06/18/24 19:13 Temperature Temperature Source Pulse Rate Respiratory Rate Respiratory Effort Respiratory Depth Blood Pressure Blood Pressure Mean Pulse Ox 88 94 Oxygen Delivery Method Room Air Nasal Cannula Oxygen Flow Rate (L/min) 2 <Dr. Halle Macias DO - Last Filed: 06/23/24 08:28> Physical Exam Const Vital Signs: 06/18/24 16:29 06/18/24 16:40 06/18/24 17:09 Temperature 98.8 F Temperature Source Oral Pulse Rate 102 H Respiratory Rate 22 H Respiratory Effort Normal Respiratory Depth Shallow Blood Pressure 111/72 Blood Pressure Mean 85 Pulse Ox 93 95 Oxygen Delivery Method Room Air Room Air Room Air Oxygen Flow Rate (L/min) 06/18/24 18:25 06/18/24 18:54 06/18/24 19:00 Temperature 98 F 98.2 F Temperature Source Oral Pulse Rate 112 H 109 H 104 H Respiratory Rate 24 H 24 H 14 Respiratory Effort Respiratory Depth Blood Pressure 129/67 H 130/74 H 120/70 Blood Pressure Mean 87 92 86 Pulse Ox 95 95 94 Oxygen Delivery Method Room Air Nasal Cannula Oxygen Flow Rate (L/min) 2 06/18/24 19:13 06/18/24 19:13 Temperature Temperature Source Pulse Rate Respiratory Rate Respiratory Effort Respiratory Depth Blood Pressure Blood Pressure Mean Pulse Ox 88 94 Oxygen Delivery Method Room Air Nasal Cannula Oxygen Flow Rate (L/min) 2 MDM <RAYNA Peterson - Last Filed: 06/18/24 19:57> MDM Lab Data Labs: Laboratory Results - last 24 hr 06/18/24 17:20 WBC 16.0 H RBC 4.72 Hgb 14.7 Hct 43.4 MCV 91.9 MCH 31.1 MCHC 33.9 RDW Std Deviation 39.2 RDW Coeff of Rubi 11.6 Plt Count 277 MPV 9.8 Immature Gran % (Auto) 0.400 Neut % (Auto) 83.7 H Lymph % (Auto) 5.9 L [place] % (Auto) 9.6 Eos % (Auto) 0.0 Baso % (Auto) 0.4 Absolute Neuts (auto) 13.4 H Absolute Lymphs (auto) 0.95 Nucleated RBC % 0 Differential Comment SCANNED Diff Path Review May foll Sodium 135 L Potassium 3.8 Chloride 103 Carbon Dioxide 22.0 Anion Gap 10 BUN 6 L Creatinine 0.82 Estim Creat Clear Calc 103.03 Est GFR (MDRD) Af Amer 120 Est GFR (MDRD) Non-Af 99 BUN/Creatinine Ratio 7.3 L Glucose 89 Lactic Acid 2.7 H* Calcium 8.9 Radiography Diagnostic Testing: Clinical Impression(s) from Imaging Studies Chest X-Ray 06/18/24 18:00 IMPRESSION: Left basilar interstitial infiltrate. Electronically Signed: Sohail Arambula MD at 18:22 EDT , EKG Normal sinus rhythm: Attestation: I personally reviewed and interpreted this EKG as follows: Interpretation: Sinus Rhythm Comments: Normal sinus rhythm, rate of 93 bpm, LA interval 156 ms, QRS duration 82 ms, no acute ST elevation, no acute infarct noted. Treatment and Re-Evaluation :: Differential diagnosis includes however is not limited to: Community-acquired pneumonia, COVID-19, influenza, RSV, other viral illness, PE Patient does have a harsh cough, patient is slightly tachycardic, the remainder the vital signs are stable. Presenting to the emergency department for complaints of cough, difficulty breathing over the last 11 days. Patient does have some adventitious lung sounds the left lower lobe, patient will receive an IV, IV fluids, oral Tylenol. Patient will receive a two-view chest x-ray. Breathing treatments as well as IV steroids. All radiologic examinations were read, reviewed by the emergency department attending. From these reads, a plan of care will be put in place. Patient will be reevaluated. Patient's chest x-ray shows a left basilar infiltrate. Is consistent with pneumonia. Patient's CBC shows a leukocytosis with white blood count of 16, patient's chemistries were unremarkable, patient's lactic acid was 2.7, patient is tachycardic, on reevaluation of the patient was 90% on room air. At this time, patient will be placed on IV antibiotics, azithromycin, Rocephin. 2 sets of blood cultures will be ordered. Patient did have slight relief with breathing treatments. Patient given oral steroids. Patient will be admitted to the hospital. <Dr. Halle Macias, DO - Last Filed: 06/23/24 08:28> [facility] Lab Data Attestation: I reviewed the patient's lab results. Labs: Laboratory Results - last 24 hr 06/18/24 17:20 WBC 16.0 H RBC 4.72 Hgb 14.7 Hct 43.4 MCV 91.9 MCH 31.1 MCHC 33.9 RDW Std Deviation 39.2 RDW Coeff of Rubi 11.6 Plt Count 277 MPV 9.8 Immature Gran % (Auto) 0.400 Neut % (Auto) 83.7 H Lymph % (Auto) 5.9 L [place] % (Auto) 9.6 Eos % (Auto) 0.0 Baso % (Auto) 0.4 Absolute Neuts (auto) 13.4 H Absolute Lymphs (auto) 0.95 Nucleated RBC % 0 Differential Comment SCANNED Diff Path Review May foll Sodium 135 L Potassium 3.8 Chloride 103 Carbon Dioxide 22.0 Anion Gap 10 BUN 6 L Creatinine 0.82 Estim Creat Clear Calc 103.03 Est GFR (MDRD) Af Amer 120 Est GFR (MDRD) Non-Af 99 BUN/Creatinine Ratio 7.3 L Glucose 89 Lactic Acid 2.7 H* Calcium 8.9 Radiography Diagnostic Testing: Clinical Impression(s) from Imaging Studies Chest X-Ray 06/18/24 18:00 IMPRESSION: Left basilar interstitial infiltrate. Electronically Signed: Sohail Arambula MD at 18:22 EDT , Treatment and Re-Evaluation :: Differential diagnosis includes however is not limited to: Community-acquired pneumonia, COVID-19, influenza, RSV, other viral illness, PE Patient does have a harsh cough, patient is slightly tachycardic, the remainder the vital signs are stable. Presenting to the emergency department for complaints of cough, difficulty breathing over the last 11 days. Patient does have some adventitious lung sounds the left lower lobe, patient will receive an IV, IV fluids, oral Tylenol. Patient will receive a two-view chest x-ray. Breathing treatments as well as IV steroids. All radiologic examinations were read, reviewed by the emergency department attending. From these reads, a plan of care will be put in place. Patient will be reevaluated. Patient's chest x-ray shows a left basilar infiltrate. Is consistent with pneumonia. Patient's CBC shows a leukocytosis with white blood count of 16, patient's chemistries were unremarkable, patient's lactic acid was 2.7, patient is tachycardic, on reevaluation of the patient was 90% on room air. At this time, patient will be placed on IV antibiotics, azithromycin, Rocephin. 2 sets of blood cultures will be ordered. Patient did have slight relief with breathing treatments. Patient given oral steroids. Patient will be admitted to the hospital. I have personally performed a face to face assessment of the patient and have reviewed the SCOTT Note. I performed a substantive portion of the visit including all aspects of the following. My davidson findings include: History is patient is a 68-year-old male denies any past medical history but notes he does not regularly see a doctor. He does smoke cigarettes regularly. He is presenting with worsening shortness of breath, cough and generalized malaise. He is on day 11 of his symptoms. Upon arrival patient is tachycardic and mildly tachypneic. He is nontoxic-appearing but does appear mildly ill. Head normocephalic atraumatic. Neck is supple with no JVD. Lungs are coarse throughout with decreased breath sounds at the bases. Is given a DuoNeb in the emergency room. Abdomen is soft and nontender. Patient is having focal neurologic deficits. Heart regular rate and rhythm. Two-view chest x-ray viewed by myself as well as radiology does Show left basilar infiltrate. I suspect patient has a postviral pneumonia. COVID test is positive. Patient does have an elevated lactate as well as leukocytosis does meet criteria for SIRS. Patient is started on IV Rocephin and azithromycin in the emergency room. As he is wheezing does have a history tobacco use is also given prednisone. He is ambulated does desaturate to 83%. Will be admitted for further respiratory treatment and submental oxygen. Patient and significant other agreeable this plan of care. Patient remains hemodynamically stable at this time. Other additions or changes: [None] Discharge Plan Dx/Rx/DC Orders Clinical Impression: Pneumonia, COVID, Hypoxia Disposition Disposition: Acute Care Hospital [facility] Discharge Date/Time: 06/18/24 20:01
[2024-06-18] MEDS: Acetaminophen 500 MG Tablet 1000 MG PO (17:22)
[2024-06-18] MEDS: 0.9% Normal Saline (1000mL) 1,000 ML 999 ML IV (17:23)
[2024-06-18] MEDS: MethylPREDNISolone 125 MG/2 ML Vial 60 MG IV (17:23)
[2024-06-18] MEDS: Albuterol 2.5 MG/3 ML VIAL.NEB. 5 MG INHALATION (17:23)
[2024-06-18] MEDS: Ipratropium/Albuterol Sulfate 3 ML AMPUL.NEB INHALATION (17:24)
[2024-06-18 17:29] LABS: Absolute Lymphocyte Count 0.95 X10^3/uL (0.83-4.51); Absolute Neutrophil Count 13.4 X10^3/uL (2.0-7.7); Basophil# 0.06 X10^3/uL; Basophil% 0.4 % (0-1); Hematocrit 43.4 % (40-54); Hemoglobin 14.7 g/dL (13.0-16.5); Lymphocyte # 0.95 X10^3/ul (0.83-4.51); Lymphocyte % 5.9 % (19-41); Mean Corp Hgb Conc 33.9 g/dL (32-36); Mean Corpuscular Hgb 31.1 pg (27.0-32.0); Mean Corpuscular Volume 91.9 fL (80-94); Mean Platelet Vol. 9.8 fl (6.2-12.0); Monocyte# 1.53 X10^3/uL; Monocyte% 9.6 % (0-10); NRBC Flagged by Analyzer 0 % (0-5); Neutrophil # 13.39 X10^3/uL (2.7-7.7); Neutrophil % 83.7 % (47-70); POSITIVE DIFFERENTIAL YES; Platelet Count 277 K/mm3 (150-450); RBC Distribution Width CV 11.6 % (11.6-14.6); RBC Distribution Width SD 39.2 fl (35.1-43.9); Red Blood Count 4.72 M/mm3 (4.6-6.2)
[2024-06-18 17:45] LABS: Anion Gap 10 (5-15); BUN 6 mg/dL (7-18); BUN/Creat Ratio 7.3 RATIO (10-20); Calcium,Total 8.9 mg/dL (8.5-10.1); Chloride 103 mmol/L (98-107); Creatinine, Serum 0.82 mg/dL (0.70-1.30); EST Glomerular Filtration Rate 99 mL/min (>60); Est Glom Filt Rate - Afr Amer 120 mL/min (>60); Estimated Creatinine Clearance 103.03 ml/min; Glucose 89 mg/dL (74-106); Potassium 3.8 mmol/L (3.5-5.1); Sodium Level 135 mmol/L (136-145)
--- NOTE | 2024-06-18 18:00 | RAD_ITS ---
STUDY: X-RAY CHEST REASON FOR EXAM: Male, 68 years old. cough TECHNIQUE: PA and lateral COMPARISON: None. FINDINGS: Interstitial infiltrate in left lower lobe which may be consistent with pneumonia. There is no demonstrated pleural abnormality. Normal size heart. Normal mediastinum and jada. Normal visualized pulmonary arteries. Normal visualized aortic arch and descending thoracic aorta. Dorsal spine demonstrates degenerative change. Normal visualized ribs, clavicles, and shoulders. There is no demonstrated abnormality of the visualized soft tissue structures of the upper abdomen. RAD/Chest PA and Lateral IMPRESSION: Left basilar interstitial infiltrate. Electronically Signed: Sohail Arambula MD at 18:22 EDT ,
[2024-06-18 18:03] LABS: Lactic Acid 2.7 mmol/L (0.4-1.9)
[2024-06-18 18:20] LABS: Differential Indicated SCAN CRITERIA MET
[2024-06-18 18:23] LABS: Differential Comment SCANNED
--- NOTE | 2024-06-18 19:08 | HP.PCM.HOS_ITS ---
HPI - General General Date of Admission: 06/18/24 Date of Service: 06/18/24 Chief Complaint: Cough, congestion, F/C, dysnea, worsening. HPI Narrative The patient is a 68 y/o M w/ PMHx: OA, Chronic migraines, Tobacco use, Chronic back pain s/p lumbar laminectomy, status post left [id number] amputation following a trauma at age 22 who presents to the [facility] ED 06/18/24 with cough, congestion, rhinorrhea, fever and chills ongoing for at least 11 days initially feeling better however then he became worse with harsh cough, mildly productive sputum and inability to exert himself without severe dyspnea prompting eventual ED evaluation to be cautious. He also notes muscles aches, mild nausea, decreased appetite, stomach cramping but very mild in addition. Work-up in the ED included T 98.8, heart rate 102, BP 111/72, respiratory rate 22, 93% on room air however with ambulatory trial in the ED patient dropped to 83% on RA, CBC with WC 16, human 14.7, platelet 277 with left shift, BMP with sodium 135, BUN/creatinine 6/0.82, lactic acid 2.7, COVID/flu/RSV PCR's with positive SARS COVID, chest x-ray left interstitial infiltrate. In the ED patient ministered Solu-Medrol 60 mg IV x 1, DuoNeb therapy albuterol, Rocephin 1 g IV x 1, azithromycin 500 mg IV x 1, Tylenol 1000 mg p.o. x 1, 1 L normal saline. [facility] Medical History (Updated 06/18/24 @ 19:[address] Elza Lemus MD) ETOH abuse Uses crutches Arthritis Back pain Migraine headache Smoker Phantom limb pain Hx of fracture of femur Home Medications ?Medication ?Instructions ?Recorded ?Last Taken ?Type NK 04/10/22 Unknown History Allergy/AdvReac Type Severity Reaction Status Date / Time oxycodone AdvReac Itching Verified 06/18/24 16:29 Family History (Updated 06/18/24 @ 19:[address] Elza Lemus MD) Mother Colon cancer Father Heart disease Surgical History (Updated 06/18/24 @ 19:[address] Elza Lemus MD) History of surgery on arm History of surgery on lower extremity History of carpal tunnel surgery of right wrist Hx of total knee arthroplasty Hx of umbilical hernia repair Hx laparoscopic cholecystectomy History of left above knee amputation Social History (Updated 06/18/24 @ 19:[address] Elza Lemus MD) household members: spouse Smoking Status: Current every day smoker tobacco type: pipe other: Packs his pipe usually at least 5x/day. alcohol intake: current alcohol intake frequency: 3 or more drinks per day Alcohol type: beer details: Usually 4-6 beers daily. substance use type: does not use ROS ROS Narrative Admission Review of Systems: CONSTITUTIONAL: No weight loss, + fever, chills, weakness or fatigue. HEENT: + Headache, congestion, rhinorrhea, sore throat. Eyes: No visual loss, blurred vision, double vision or yellow sclerae. Ears, Nose, Throat: No hearing loss, sneezing. SKIN: No rash or itching, lesions, wounds. CARDIOVASCULAR: No chest pain, chest pressure or chest discomfort, palpitations, edema, orthopnea, syncopal events. RESPIRATORY: + Cough, occasional sputum production, occasional wheezing. No hemoptysis. GASTROINTESTINAL: + Anorexia, nausea, abdominal cramping. No vomiting, diarrhea, abdominal pain, melena, BRBPR. GENITOURINARY: No dysuria, frequency, urgency or retention. NEUROLOGICAL: + Headache. dizziness, syncope, paralysis, ataxia, numbness or tingling in the extremities, focal weakness, change in bowel or bladder control, seizure. MUSCULOSKELETAL: + muscle, back pain, joint pain or stiffness. HEMATOLOGIC: No anemia, bleeding or bruising. LYMPHATICS: No enlarged nodes. No history of splenectomy. PSYCHIATRIC: No history of depression or anxiety. ENDOCRINOLOGIC: No reports of sweating, cold or heat intolerance. No polyuria or polydipsia. ALLERGIES: No history of asthma, hives, eczema or rhinitis. Vital Signs Vital Signs Vital Signs: 06/18/24 16:29 06/18/24 16:40 06/18/24 17:09 Temperature 98.8 F Temperature Source Oral Pulse Rate 102 H Respiratory Rate 22 H Respiratory Effort Normal Respiratory Depth Shallow Blood Pressure 111/72 Blood Pressure Mean 85 Pulse Ox 93 95 Oxygen Delivery Method Room Air Room Air Room Air Oxygen Flow Rate (L/min) 06/18/24 18:25 06/18/24 18:54 06/18/24 19:00 Temperature 98 F 98.2 F Temperature Source Oral Pulse Rate 112 H 109 H 104 H Respiratory Rate 24 H 24 H 14 Respiratory Effort Respiratory Depth Blood Pressure 129/67 H 130/74 H 120/70 Blood Pressure Mean 87 92 86 Pulse Ox 95 95 94 Oxygen Delivery Method Room Air Nasal Cannula Oxygen Flow Rate (L/min) 2 Weight Weight: 188 lb 11.451 oz Body Mass Index (BMI) 24.2 Physical Exam Narrative Physical Examination: General: Awake, alert, oriented x 3 and cooperative, seated upright in bed the ED bed, fatigued appearing. Skin: Normal color, normal turgor, no icterus, no cyanosis. HEENT: AT/NC, EOMI, PERRLA, MMM, no carotid bruits or JVD noted. Lungs: Significantly diminished, greater bases, rhonchorous, mild increased respiratory rate but no accessory muscle usage. Heart: Mildly tachycardic with regular rhythm; no gallop, rub audible. Abdomen: Soft, NTTP, ND, hyperactive BS, no appreciated HSM. Extremities: No cyanosis, no clubbing, no marked peripheral edema, status post left AKA. Neurological: Patient awake, alert, oriented as noted, cognitive function intact; pupils equally reactive to light and accommodation, cranial nerves gross normal, moving all 4 extremities, no focal deficits, strength moderately to severely global decrease secondary to acute presentation. Psychiatric: Affect appears fatigued, ill-appearing, no acute evidence of depressive or anxiety feelings. Results Lab / Micro Data 06/18/24 17:20 06/18/24 17:20 Labs: Laboratory Results - last 24 hr 06/18/24 17:20: WBC 16.0 H, RBC 4.72, Hgb 14.7, Hct 43.4, MCV 91.9, MCH 31.1, MCHC 33.9, RDW Std Deviation 39.2, RDW Coeff of Rubi 11.6, Plt Count 277, MPV 9.8, Immature Gran % (Auto) 0.400, Neut % (Auto) 83.7 H, Lymph % (Auto) 5.9 L, [place] % (Auto) 9.6, Eos % (Auto) 0.0, Baso % (Auto) 0.4, Absolute Neuts (auto) 13.4 H, Absolute Lymphs (auto) 0.95, Nucleated RBC % 0, Differential Comment SCANNED, Diff Path Review May foll, Sodium 135 L, Potassium 3.8, Chloride 103, Carbon Dioxide 22.0, Anion Gap 10, BUN 6 L, Creatinine 0.82, Estim Creat Clear Calc 103.03, Est GFR (MDRD) Af Amer 120, Est GFR (MDRD) Non-Af 99, B UN/Creatinine Ratio 7.3 L, Glucose 89, Lactic Acid 2.7 H*, Calcium 8.9 Micro: Microbiology 06/18/24 17:26 Mucosa - Nasopharyngeal SARS-CoV-2, Influenza & RSV (PCR) - Final SARS-CoV-2 (COVID 19 PCR) Imaging Radiology Impression Chest X-Ray 06/18/24 18:00 IMPRESSION: Left basilar interstitial infiltrate. Electronically Signed: Sohail Arambula MD at 18:22 EDT , Assessment & Plan Assessment/Plan (1) COVID: (2) Hypoxia: (3) Pneumonia: PLAN: Plan The patient is a 68 y/o M w/ PMHx: OA, Chronic migraines, Tobacco use, Chronic back pain s/p lumbar laminectomy, status post left [id number] amputation following a trauma at age 22 who presents to the [facility] ED 06/18/24 with cough, congestion, rhinorrhea, fever and chills ongoing for at least 11 days initially feeling better however then he became worse with harsh cough, mildly productive sputum and inability to exert himself without severe dyspnea prompting eventual ED evaluation to be cautious. #1. Acute Hypoxia to Acute Viral Syndrome, COVID-19 w/ associated Acute L basilar pneumonia, Possible CAP/Superimposed bacterial PNA versus Viral COVID PNA with mild lactic acidosis, suspected secondary to primarily hypoxemia: Will admit to the [facility] telemetry, maintain on COVID precautions, will maintain on oxygen with wean as tolerated to room air, ATC budesonide treatments, PRN albuterol, HOB, IS parameters w/ pending sputum cultures, respiratory viral panel and urine antigens, will obtain D-dimer, procalcitonin, CRP, CPK, Ferritin, LDH, trop and BNP, will maintain on IV rocephyin and azithromycin given concern for superimposed bacterial PNA until futher assessed, will continue supportive care including q 2 hour turning including prone given no prone bed availability and judicious hydration, closely monitor for worsening status for ARDS and multiorgan failure, will initiate and continue IV decadron x 10 doses, given > 10 day timeline patien tis note candidate for remdesivir. PT/OT/CM consulted for discharge planning. #2. EtOH Abuse: Patient notes routine consumption of 4-6 beers per day. Will maintain on CIWA protocol, MVI, thiamine and folic acid. Case management consulted. Discussed appropriate level of alcohol consumption in an adult male. Per discussion with patient and spouse he can go several days at a time without any alcohol intake but he reports even feeling as he does his last alcohol intake was on day of presentation with at least a couple beers. #3. Hyponatremia, mild, possibly chronic given alcohol abuse: Admission BMP with sodium 135, chloride 103, judiciously hydrating given COVID presentation, repeat CMP in AM. #4. History of lower extremity trauma: Patient status post significant trauma status post left AKA, maintain on fall precautions, PT/OT/case management consulted for discharge planning. #5. Chronic migraines: Not on any chronic regimen, will have Tylenol as needed, may pulsed dose with IV Toradol if necessary. #6. Tobacco Abuse: Encouraged cessation, inpatient consultation per RT, NR if desired. #7. DVT prophylaxis: Lovenox twice daily per COVID protocol. #8. CODE status: Patient does not have healthcare power of deputy commonwealth's attorney or living will in place but his was present would be his medical decision-maker if necessary he notes. Discussed CODE status at length including difference between FULL code, DNR-CCA and DNR-CC status. Following discussions about the differences in these status, requested Full Code status. Advanced Care Planning Face to Face Time: 16 minutes. Charges/Coding Visit Charges Inpatient E&M: 09502 Init Hosp L3 Procedures Hospitalists Procedures: 12820 Advncd Care Plan 30 Min
[2024-06-18] MEDS: Ceftriaxone 1 GM/50 ML BAG IV (19:28)
[2024-06-18] MEDS: Azithromycin 500 MG in Dextrose 5%-Water (250mL Bag) 250 ML 250 MG IV (19:41)
[2024-06-18 20:05] LABS: AST(SGOT) 19 U/L (15-37); Alanine Aminotransfer ALT/SGPT 20 U/L (16-61); Albumin, Serum 3.2 g/dL (3.2-5.0); Alkaline Phosphatase 64 U/L (45-117); Bilirubin, Direct 0.31 mg/dL (0.00-0.30); CPK Total, Creatine Kinase 136 U/L (39-308); Ferritin 219 ng/mL (26-388); Globulin 3.9 g/dL (2.2-4.2); LDH 131 U/L (87-241); Magnesium 2.5 mg/dL (1.6-2.6); Phosphorus 2.8 mg/dL (2.5-4.9); Protein, Total 7.1 g/dL (6.4-8.2)
[2024-06-18 20:07] LABS: D-Dimer Quantitative (DVT/PE) 0.72 FEU/ug/m (0.27-0.49)
[2024-06-18 20:17] LABS: Erythrocyte Sedimentation Rate 38 mm/hr (0-20)
--- NOTE | 2024-06-18 20:28 | CT_ITS ---
STUDY: CTA CHEST REASON FOR EXAM: Male, 68 years old. Elevated dimer, possible PE RADIATION DOSAGE (If Supplied By Facility): CTDIvol = ( 12.57 ) mGy, DLP = ( 842.83 ) mGycm TECHNIQUE: The examination was performed with the intravenous administration of IV 100mL Isovue-370. Post-processing of the angiographic images was performed, with multiplanar reformation and 3D reconstruction. Individualized dose optimization techniques were used for this CT. COMPARISON: None. FINDINGS: Normal enhancement of the main pulmonary artery and right and left pulmonary arteries. . There is no demonstrated pulmonary embolism. Minor atherosclerotic changes of the aorta without evidence for aneurysm There is no demonstrated aortic dissection. Heart size is normal. There is minor coronary artery calcification Normal mediastinum. Normal hilar regions. Normal visualized trachea and bronchi. The lungs are well expanded. Minor atelectasis within the dependent portion of both the upper and lower lobes. Focal reticulonodular interstitial thickening in the left lower lobe with patchy area of increased density which may be consistent with inflammatory disease Normal pleura. Normal chest wall structures. Dorsal spine demonstrates degenerative changes Gallbladder has been removed surgically CT/CTA Chest W/WO Contrast IMPRESSION: Findings which may be consistent with mild left lower lobe pneumonia.. No evidence for pulmonary embolus Electronically Signed: Sohail Arambula MD at 22:17 EDT ,
[2024-06-18 21:26] LABS: Reflex Lactate? Y
[2024-06-18] MEDS: 0.9% Normal Saline (1000mL) 1,000 ML 100 ML IV (21:50)
[2024-06-18] MEDS: Ketorolac 15 MG/ML Vial IV (21:51)
[2024-06-18] MEDS: Enoxaparin 30 MG/0.3 ML Syringe SC (21:51)
[2024-06-18 22:08] LABS: Lactic Acid 1.9 mmol/L (0.4-1.9)
[2024-06-18 23:49] LABS: BNP,B-Type NATRIURETIC PEPTIDE 79.4 pg/mL (0-100)
[2024-06-19 00:29] LABS: Procalcitonin 0.06 ng/mL (0.00-0.09)
[2024-06-19 05:06] LABS: Absolute Neutrophil Count 11.1 X10^3/uL (2.0-7.7); Basophil# 0.02 X10^3/uL; Basophil% 0.2 % (0-1); Hematocrit 39.8 % (40-54); Hemoglobin 13.4 g/dL (13.0-16.5); Lymphocyte % 3.4 % (19-41); Mean Corp Hgb Conc 33.7 g/dL (32-36); Mean Corpuscular Hgb 31.5 pg (27.0-32.0); Mean Corpuscular Volume 93.4 fL (80-94); Mean Platelet Vol. 10.2 fl (6.2-12.0); Monocyte# 0.23 X10^3/uL; Monocyte% 1.9 % (0-10); NRBC Flagged by Analyzer 0 % (0-5); Neutrophil # 11.11 X10^3/uL (2.7-7.7); POSITIVE DIFFERENTIAL YES; Platelet Count 248 K/mm3 (150-450); RBC Distribution Width CV 11.5 % (11.6-14.6); RBC Distribution Width SD 39.4 fl (35.1-43.9); Red Blood Count 4.26 M/mm3 (4.6-6.2); White Blood Count 11.8 K/mm3 (4.4-11.0)
[2024-06-19 05:48] LABS: ALB/GLOB Ratio 0.8 RATIO (0.9-2.4); AST(SGOT) 11 U/L (15-37); Alanine Aminotransfer ALT/SGPT 17 U/L (16-61); Albumin, Serum 2.7 g/dL (3.2-5.0); Alkaline Phosphatase 58 U/L (45-117); Anion Gap 6 (5-15); BUN 8 mg/dL (7-18); BUN/Creat Ratio 10.4 RATIO (10-20); Calcium,Total 8.6 mg/dL (8.5-10.1); Chloride 103 mmol/L (98-107); Creatinine, Serum 0.77 mg/dL (0.70-1.30); EST Glomerular Filtration Rate 107 mL/min (>60); Est Glom Filt Rate - Afr Amer 130 mL/min (>60); Estimated Creatinine Clearance 103.03 ml/min; Globulin 3.6 g/dL (2.2-4.2); Glucose 172 mg/dL (74-106); Potassium 4.5 mmol/L (3.5-5.1); Protein, Total 6.3 g/dL (6.4-8.2); Sodium Level 133 mmol/L (136-145)
[2024-06-19 06:11] VITALS: BMI 22.6
[2024-06-19 06:37] VITALS: BP 126/76; PULSE 84; RESP 18; O2SAT 94
[2024-06-19 07:45] VITALS: O2SAT 94
[2024-06-19 08:29] VITALS: BP 116/78; PULSE 72; RESP 18; TEMP 36.6; O2SAT 95
[2024-06-19 08:37] VITALS: O2SAT 93; O2SAT 94
[2024-06-19] MEDS: Thiamine Hydrochloride 100 MG Tablet PO (08:41)
[2024-06-19] MEDS: Folic Acid 1 MG Tablet PO (08:41)
[2024-06-19] MEDS: Multivitamins,Ther W-Minerals Tablet 1 TABLET PO (08:41)
[2024-06-19] MEDS: dexAMETHasone 10 MG/ML Vial 6 MG IV (08:42)
[2024-06-19] MEDS: Enoxaparin 30 MG/0.3 ML Syringe SC (08:42)
[2024-06-19] MEDS: Ceftriaxone 1 GM/50 ML BAG IV (09:43)
--- NOTE | 2024-06-19 10:20 | CASEMGMT ---
DEDE ROSA Assessment Face to Face with patient for initial transition planning/care coordination assessment. DEDE ROSA introduced self and role at [facility], pt voices understanding. Pt is A&Ox4 and is resting comfortably in bed and is calm. Care providers, pharmacy, and demographics verified. Admitting dx:JORGE A PCP: Irasema Morrison Specialists: Denies Preferred Pharmacy: [facility] Insurance: [employer] Prescription Benefit: Yes LNOK: Supriya Cabreraer (W) Living Arrangements: Pt lives with his in a split level home with 6 steps to the upper portion and 7 steps to the lower portion with 2 steps to enter the home ADLs/IADLs: Ind Transportation: Self, DME: Pt has crutches and a FWW at home. Denies further needs HHC/SNF: Denies Hx or needs Pt?s goal: Home Plan: Home no needs. Pt is currently 97% on RA. Pt denies the need for HHC, OP Tx, or SNF. Pt states that he feels safe discharging home with his once he is medically ready and denies further questions or concerns at this time. Toan Cain RN, CM
[2024-06-19] MEDS: Azithromycin 500 MG in Dextrose 5%-Water (250mL Bag) 250 ML 250 MG IV (10:35)
[2024-06-19 12:43] VITALS: BP 128/59; PULSE 88; RESP 18; TEMP 36.7; O2SAT 94
--- NOTE | 2024-06-19 13:04 | PCM.DC ---
Discharge Instructions Diet Discharge Diet: No restrictions Activity Discharge Activity: No Restrictions Follow Up Care Test Results: Test results from this visit will be discussed in further detail at your follow-up appointment, if applicable. Discharge Plan Admission Admit Date/Time: 06/18/24 19:24 Primary Reason for Your Visit: Upper respiratory symptoms with fevers Attending Provider: Jered Solano Primary Care Provider: Irasema Morrison Consulting Providers: Elza Lemus Instructions Additional Instructions / Restrictions: Please take the antibiotic and prednisone for 4 more days each to complete 5-day courses of antibiotics and steroids total. Use the albuterol inhaler as needed. Follow-up with your primary care doctor in the office as needed. Discharge Orders/Prescriptions Prescriptions: New amoxicillin-pot clavulanate 875-125 mg tablet 1 tab PO BID 4 Days Qty: 8 0RF prednisone 20 mg tablet 40 mg PO DAILY 4 Days Qty: 8 0RF albuterol sulfate 90 mcg/actuation HFA aerosol inhaler 1 inh inhalation Q6H PRN (Reason: shortness of breath or wheezing) Qty: 8.5 0RF Referrals / Follow Up: Irasema Morrison DO [Primary Care Provider] - Disposition Disposition (needs filled in before D/C Order can be placed): Home, Self Care
--- NOTE | 2024-06-19 13:07 | DS.PCM_ITS ---
Providers Date of Admission: 06/18/24 Date of Discharge: 06/19/24 Primary Care Physician: Dr. Irasema Morrison, Reason For Visit: COVID, HYPOXIA, POSS SUPERIMPROSED BACTERIAL Diagnosis Discharge Diagnosis (1) COVID: Status: Acute Code(s): U07.1 - COVID-19 (2) Hypoxia: Status: Acute Code(s): R09.02 - Hypoxemia (3) Pneumonia: Status: Acute Code(s): J18.9 - Pneumonia, unspecified organism Medications at Discharge Home Medications albuterol sulfate 90 mcg/actuation aerosol inhaler 1 inh inhalation Q6H PRN shortness of breath or wheezing #8.5 grams 06/19/24 amoxicillin 875 mg-potassium clavulanate 125 mg tablet 1 tab PO BID 4 days #8 tabs 06/19/24 prednisone 20 mg tablet 40 mg (2 x 20 mg) PO DAILY 4 days #8 tabs 06/19/24 Hospital Course Operations None Procedures - (Chest x-ray, CTA chest) Summary of Care Provided Minutes Spent on Discharge: 35 Hospital Course: Patient is a 68-year-old male who presented [facility] ED on 06/18/2024 with worsening upper respiratory symptoms and fever/chills. Short hospital course as noted below. Patient discharged home in stable condition on 06/19. 1. COVID-19 infection with concern for superimposed bacterial pneumonia and mild acute hypoxia, improving ? COVID-19 positive on admit. Chest x-ray showed left basilar interstitial infiltrate. CTA chest showed suspected mild left lower lobe pneumonia and no PE. Patient mildly hypoxic on exertion on admit. Infectious workup negative. Treated with IV steroids, IV antibiotics, albuterol as needed, incentive spirometry and Acapella with good improvement in symptoms on hospital day 2. Completed oxygen qualification testing and oxygen saturations remained above 93% on exertion on day of discharge. Discharged on Augmentin and prednisone 40 mg daily for 4 more days each to complete 5-day courses of treatment total. Albuterol inhaler as needed also prescribed on discharge. 2. Alcohol abuse ? Reported routine consumption of 4-6 beers daily. On CIWA protocol during hospitalization but did not trigger this. Discussed appropriate level of alcohol consumption adult male and encouraged this on discharge. 3. History of lower extremity trauma s/p left AKA ? Stable. No therapy needs on discharge. 4. Tobacco abuse ? Denied need for nicotine replacement therapy while inpatient. Encouraged cessation on discharge. Total clinical time spent by myself addressing the patient's medical issues, reviewing all the data, and collaborating with patient's care team: 35 minutes. Physical Exam Const alert, oriented x3, no apparent distress and average body habitus Constitutional Narrative: Pleasant elderly male, john appearance noted, otherwise sitting up comfortably in bed, conversing normally, in no acute distress. General Appearance: cooperative and comfortable HEENT normocephalic, head/scalp atraumatic, hearing grossly normal bilaterally, nasal mucous membranes and turbinates normal and moist oral mucous membranes Eyes PERRL, EOMs intact bilaterally and conjunctivae normal Neck full ROM Chest inspection of chest normal Resp normal respiratory effort and no use of accessory muscles Resp Narrative: Breathing comfortably on room air at rest and good air movement throughout bilaterally. No wheezing or crackles noted. Cardio regular rate, regular rhythm, no murmurs and peripheral pulses 2+ throughout GI normal to inspection, nondistended, normoactive bowel sounds, soft to palpation, non-tender and non-distended Back/Spine normal ROM Extremity normal to inspection, full ROM and no pedal edema Skin no rashes or lesions noted Neuro no focal motor deficits and no sensory deficits noted Speech: speech normal Psych mental status grossly normal Weight / BMI Weight Weight: 80.2 kg Body Mass Index (BMI) 22.6 ABG / Lab / Microbiology Data 06/19/24 04:32 06/19/24 04:32 Laboratory: Laboratory Results - last 24 hr 06/18/24 17:20: WBC 16.0 H, RBC 4.72, Hgb 14.7, Hct 43.4, MCV 91.9, MCH 31.1, MCHC 33.9, RDW Std Deviation 39.2, RDW Coeff of Rubi 11.6, Plt Count 277, MPV 9.8, Immature Gran % (Auto) 0.400, Neut % (Auto) 83.7 H, Lymph % (Auto) 5.9 L, [place] % (Auto) 9.6, Eos % (Auto) 0.0, Baso % (Auto) 0.4, Absolute Neuts (auto) 13.4 H, Absolute Lymphs (auto) 0.95, Nucleated RBC % 0, Differential Comment SCANNED, Diff Path Review May foll, ESR 38 H, D-Dimer Quant (PE/DVT) 0.72 H*, S odium 135 L, Potassium 3.8, Chloride 103, Carbon Dioxide 22.0, Anion Gap 10, BUN 6 L, Creatinine 0.82, Estim Creat Clear Calc 103.03, Est GFR (MDRD) Af Amer 120, Est GFR (MDRD) Non-Af 99, BUN/Creatinine Ratio 7.3 L, Glucose 89, Lactic Acid 2.7 H*, Calcium 8.9, Phosphorus 2.8, Magnesium 2.5, Ferritin 219, Total Bilirubin 0.60, Direct Bilirubin 0.31 H, AST 19, ALT 20, Alkaline Phosphatase 64, Lactate Dehydrogenase 131, Total Creatine Kinase 136, C-React Prot Ext Range 44.30 H, B-Natriuretic Peptide 79.4, Total Protein 7.1, Albumin 3.2, Globulin 3.9 06/18/24 21:33: Lactic Acid 1.9, Procalcitonin 0.06 06/19/24 04:32: WBC 11.8 H, RBC 4.26 L, Hgb 13.4, Hct 39.8 L, MCV 93.4, MCH 31.5, MCHC 33.7, RDW Std Deviation 39.4, RDW Coeff of Rubi 11.5 L, Plt Count 248, MPV 10.2, Immature Gran % (Auto) 0.500, Neut % (Auto) 94.0 H, Lymph % (Auto) 3.4 L, [place] % (Auto) 1.9, Eos % (Auto) 0.0, Baso % (Auto) 0.2, Absolute Neuts (auto) 11.1 H, Absolute Lymphs (auto) 0.40 L, Nucleated RBC % 0, Sodium 133 L, Potassium 4.5, Chloride 103, Carbon Dioxide 24.0, Anion Gap 6, BUN 8, Creatinine 0.77, Estim Creat Clear Calc 103.03, Est GFR (MDRD) Af Amer 130, Est GFR (MDRD) Non-Af 107, BUN/Creatinine Ratio 10.4, Glucose 172 H, Calcium 8.6, Total Bilirubin 0.50, AST 11 L, ALT 17, Alkaline Phosphatase 58, Total Protein 6.3 L, Albumin 2.7 L, Globulin 3.6, Albumin/Globulin Ratio 0.8 L Microbiology: Microbiology 06/18/24 22:00 Urine, Random Legionella Antigen - Final 06/18/24 22:00 Urine, Random Streptococcus pneumoniae Antigen (M - Final 06/18/24 17:26 Mucosa - Nasopharyngeal SARS-CoV-2, Influenza & RSV (PCR) - Final SARS-CoV-2 (COVID 19 PCR) Radiography Diagnostic Testing: Radiology Impression Chest X-Ray 06/18/24 18:00 IMPRESSION: Left basilar interstitial infiltrate. Electronically Signed: Sohail Arambula MD at 18:22 EDT , Chest CTA 06/18/24 20:28 IMPRESSION: Findings which may be consistent with mild left lower lobe pneumonia.. No evidence for pulmonary embolus Electronically Signed: Sohail Arambula MD at 22:17 EDT , D/C Instructions Discharge Diet: No restrictions Meaningful Use Info Meaningful Use Meaningful Use Diagnoses (Choose all that apply): None applicable Ischemic Stroke Statin Dosing Therapy Reference: STATIN DOSE THERAPY REFERENCE: * Patients > 75 years receive moderate or high dose statin therapy. * Patients 75 years or YOUNGER should receive HIGH intensity statin dose unless contraindicated. You will be required to document reason for non-treatment if statin daily dose does not meet guidelines. HIGH DOSE STATIN THERAPY DAILY Atorvastatin > than or = to 40 mg Rosuvastatin > than or = to 20 mg Amlodipine + Atorvastatin > than or = to 2.5/40 mg Ezetimibe + Simvastatin 10/80 mg Simvastatin 80mg Discharge Plan Admission Admit Date/Time: 06/18/24 19:24 Primary Reason for Your Visit: Upper respiratory symptoms with fevers Attending Provider: Jered Solano Primary Care Provider: Irasema Morrison Consulting Providers: Elza Lemus Instructions Additional Instructions / Restrictions: Please take the antibiotic and prednisone for 4 more days each to complete 5-day courses of antibiotics and steroids total. Use the albuterol inhaler as needed. Follow-up with your primary care doctor in the office as needed. Discharge Orders/Prescriptions Prescriptions: New amoxicillin-pot clavulanate 215125 mg tablet 1 tab PO BID 4 Days Qty: 8 0RF prednisone 20 mg tablet 40 mg PO DAILY 4 Days Qty: 8 0RF albuterol sulfate 90 mcg/actuation HFA aerosol inhaler 1 inh inhalation Q6H PRN (Reason: shortness of breath or wheezing) Qty: 8.5 0RF Referrals / Follow Up: Irasema Morrison DO [Primary Care Provider] - Disposition Disposition (needs filled in before D/C Order can be placed): Home, Self Care Charges/Coding Visit Charges Inpatient E&M: 51775 Disch Hosp >30min
--- NOTE | 2024-06-19 13:17 | CASEMGMT ---
Per the director counseling bureau, the pt did not qualify for home oxygen.
[2024-06-21 11:30] LABS: Pathologist Review Reviewed
== END 2024-06-19 13:41 | disposition home or self-care (01) | DRG 177 ==
LOC: ED 19:06 → MS3 19:36
PROVIDERS: Nurse Practitioner; Admitting Provider Family Medicine; Emergency Provider Emergency Medicine; PCP Family Medicine; Visit Provider Hospitalist
DX: U07.1 COVID-19 (principal); J18.9 Pneumonia, unspecified organism; E87.1 Hypo-osmolality and hyponatremia; Z89.612 Acquired absence of left leg above knee; F10.10 Alcohol abuse, uncomplicated; F17.290 Nicotine dependence, other tobacco product, uncomplicated
CPT/HCPCS: 36415; 71046; 71275; 80048; 80053; 80076; 82550; 82728; 83605; 83615; 83735; 83880; 84100; 84145; 85025; 85379; 85652; 86140; 87040; 87070; 87077; 87186; 87205; 87449; 87631; 93005; 94640; 94668; 94762; 99252; 99284; 99406; J7030; Q9967; A4216; G0463